=== PATIENT | male | born 1935 | race Caucasian/White ===

== ENCOUNTER 2024-08-18 20:29 | Inpatient (IN) | payer MEDICARE, MEDICAID, SELFPAY ==
[2024-08-18] VITALS (8 sets, daily range): BP systolic 135–177; BP diastolic 75–151; PULSE 96–117; RESP 18–26; TEMP 37; O2SAT 91–93; BMI 39.5
--- NOTE | 2024-08-18 20:48 | XRR_ITS ---
PROCEDURE INFORMATION: Exam: XR Chest Exam date and time: 08/18/2024 8:56 PM Age: 88 years old Clinical indication: Shortness of breath; Patient HX: Respiratory distress; Chest congestion; Cough TECHNIQUE: Imaging protocol: Radiologic exam of the chest. Views: 1 view. COMPARISON: No relevant prior studies available. FINDINGS: Lungs: Relatively low lung volumes with mild patchy basilar opacities likely due to atelectatic change, versus pneumonia in the appropriate clinical setting. Pleural spaces: Unremarkable. No pleural effusion. No pneumothorax. Heart/Mediastinum: Borderline cardiac silhouette size. Bones/joints: Unremarkable. Organs: Branching density in the right upper quadrant could represent material in the bowel versus less likely staghorn renal calculus. Other findings: Txba-ud-ywmgyyxw right hemidiaphragmatic elevation. XR/XR chest 1V portable [id number] IMPRESSION: Mild patchy bibasilar retrocardiac opacities due to atelectasis or pneumonia. Other findings detailed above.
[2024-08-18 20:53] LABS: ABG PCO2 52.4 mmHg (35-45); ABG PH Result 7.27 (7.35-7.45); Arterial Blood Gas Hematocrit 31.1 % (42-52); Blood Gas Allen Test Pos; Blood Gas Operator Identificat MONRO; Blood Gas Sample Site Radial, left; Blood Gas Sample Type Arterial; Carboxyhemoglobin 0.9 %THgb (0.4-20.1); HCO3 ABG 24.1 mmol/L (22-26); HGB O2 Sat 94.7 % (95-100); Methemoglobin 0.2 % (0.4-1.5); Oxygen Device NRB; Total Hemoglobin 10.2 g/dL (14-18)
[2024-08-18] MEDS: ipratropium-albuterol 3 mL Neb INHALATION (21:01)
[2024-08-18 21:13] LABS: Basophils # 0.1 10^3/uL (0.0-0.1); Basophils % 0.4 %; Eosinophils % 0.1 %; Hematocrit 35.4 % (37-53); Lymphocytes # 0.7 10^3/uL (0.8-4.8); Lymphocytes % 4.8 %; Mean Corpuscular HGB Conc 28.5 g/dL (30-55); Mean Corpuscular Hemoglobin 24.9 pg (27-33); Mean Corpuscular Volume 87.4 fl (82-101); Mean Platelet Volume 9.4 fL (7.4-10.4); Monocytes # 0.7 10^3/uL (0.2-0.9); Monocytes % 5.1 %; Neutrophils # 12.68 10^3/uL (1.8-7.7); Neutrophils % 89.2 %; Nucleated Red Blood Cells % 0 %; Platelet Count 246 10^3/cmm (157-399); Red Blood Count 4.05 10^6/uL (3.85-5.65); Red Cell Distribution Width 15.9 % (12.1-15.1); White Blood Count 14.23 10^3/uL (3.29-11.43)
[2024-08-18 21:30] LABS: Lactic Sepsis W/Reflex 1.1 mmol/L (0.5-2.2)
[2024-08-18 21:40] LABS: Blood Urea Nitrogen 46 mg/dL (8-23); Calcium 8.6 mg/dL (8.5-10.5); Carbon Dioxide 22 mmol/L (22-29); Chloride 104 mmol/L (98-107); Creatinine Clr Calc Pharmacy 34.7137; Glucose 190 mg/dL (65-115); NT Pro B Type Natriuretic Pept 1289 pg/mL (0-450); Osmolality Calculated 303 mOsm/kg (285-295); Sodium 138 mmol/L (136-145)
--- NOTE | 2024-08-18 22:46 | W.ED.SOB ---
HPI - SOB/Dyspnea General: Chief Complaint: Shortness of Breath/Dyspnea Stated Complaint: Resp Distress Time Seen by Provider: 08/18/24 20:40 History of Present Illness: HPI Narrative: This patient is an 88-year-old halfway resident who presents to the emergency department with shortness of breath. Patient was hypoxic at the halfway evidently his O2 sats dropped into the 80s. They did place him on oxygen. He has been coughing up brown phlegm. Unable to obtain a history from the patient. According to halfway records he has a history of a brain disorder. He also has a history of type 2 diabetes insulin-dependent, congestive heart failure and hypertension. Review of Systems General: Reports: ROS unobtainable due to medical condition Physical Exam Const: OTHER: Ill appearing HENMT: COMMON NORMALS: normocephalic, atraumatic, Normal nasal mucous membranes and turbinates present, moist oral mucous membranes and oropharynx normal HEAD & SCALP: normal to inspection, normocephalic and atraumatic FACE & SINUS: normal facial exam NOSE: Normal nasal mucous membranes and turbinates present Eye: COMMON NORMALS: Equal, round and reactive pupils present, EOMs intact bilaterally and conjunctivae normal GENERAL EYE: appearance normal, both eyes and all related structures CONJUNCTIVA: Yes conjunctivae normal PUPIL: Yes Equal, round and reactive pupils present Neck/C-Spine: COMMON NORMALS: supple and no JVD Chest: COMMONS NORMALS: normal inspection of the chest Resp: AUSCULTATION: rhonchi Cardio: COMMON NORMALS: no JVD, regular rate, regular rhythm, No gallops present (Cardio), No murmurs present (Cardio) and No rub (Cardio) RATE: regular rate RHYTHM: regular rhythm GI: COMMON NORMALS: Normal to inspection, nondistended, normoactive bowel sounds present, Soft to palpation and non-tender AUSCULTATION: Yes normoactive bowel sounds PALPATION: Yes Soft to palpation : COMMON NORMALS: Yes no CVA tenderness BLADDER/KIDNEY EXAM: Yes no CVA tenderness Back/Pelvis: COMMON NORMALS: no CVA tenderness and thoracic and lumbar spine normal to inspection Extremity: COMMON NORMALS: normal to inspection Neuro: COMMON NORMALS: CN's II-XII intact bilaterally Skin: COMMON NORMALS: no rashes or lesions noted, turgor normal and no jaundice GENERAL SKIN EXAM: no rashes or lesions noted and turgor normal Course Vital Signs: Vital signs: Vital Signs Temperature 98.6 F 08/18/24 20:39 Pulse Rate 113 H 08/18/24 21:08 Respiratory Rate 24 H 08/18/24 21:02 Blood Pressure 143/81 08/18/24 20:39 Pulse Oximetry 92 08/18/24 21:02 Oxygen Delivery Me thod Nasal Cannula 08/18/24 21:02 Oxygen Flow Rate 6 08/18/24 21:02 MDM - SOB/Dyspnea Medical Decision Making Arterial blood gases on 10 L on pH of 7.27, pCO2 52 and a pO2 of 88. Respiratory therapist put him on 6 L per nasal cannula is satting in the low 80s at this time. CBC reveals white blood cell count of 14.2. Hemoglobin 10.1. BMP revealed BUN 46 creatinine 1.8. Blood sugar 190. Lactic acid 1.1. BNP 1289. Chest x-ray was difficult to interpret due to poor inspiratory effort. Possible congestive heart failure. Possible perihilar infiltrates. COVID and influenza testing are pending. I did order Rocephin and Zithromax for pneumonia and 40 mg of Lasix for possible congestive heart failure. Patient will need to be admitted. I discussed the case with Dr. Hampton, hospitalist. He did accept the patient. He would like the patient in the cardiac stepdown unit. Patient is stable. He will be transferred to the floor soon as the bed is available. Lab Data 08/18/24 21:10 08/18/24 21:10 Labs/Radiology: Laboratory Results WBC 14.23 10^3/uL (3.29-11.43) H 08/18/24 21:10 RBC 4.05 10^6/uL (3.85-5.65) 08/18/24 21:10 Hgb 10.10 g/dL (11.27-16.99) L 08/18/24 21:10 Hct 35.4 % (37-53) L 08/18/24 21:10 MCV 87.4 fl (82-101) 08/18/24 21:10 MCH 24.9 pg (27-33) L 08/18/24 21:10 MCHC 28.5 g/dL (30-55) L 08/18/24 21:10 RDW 15.9 % (12.1-15.1) H 08/18/24 21:10 Plt Count 246 10^3/cmm (157-399) 08/18/24 21:10 MPV 9.4 fL (7.4-10.4) 08/18/24 21:10 Neut % (Auto) 89.2 % 08/18/24 21:10 Lymph % (Auto) 4.8 % 08/18/24 21:10 [place] % (Auto) 5.1 % 08/18/24 21:10 Eos % (Auto) 0.1 % 08/18/24 21:10 Baso % (Auto) 0.4 % 08/18/24 21:10 Neut # (Auto) 12.68 10^3/uL (1.8-7.7) H 08/18/24 21:10 Lymph # (Auto) 0.7 10^3/uL (0.8-4.8) L 08/18/24 21:10 [place] # (Auto) 0.7 10^3/uL (0.2-0.9) 08/18/24 21:10 Eos # (Auto) 0.0 10^3/uL (0.0-0.8) 08/18/24 21:10 Baso # (Auto) 0.1 10^3/uL (0.0-0.1) 08/18/24 21:10 Nucleated RBC % (auto) 0 % 08/18/24 21:10 Nucleated RBCs # 0.0 /100WBC 08/18/24 21:10 Specimen Type Arterial 08/18/24 20:40 Sample Site Radial, left 08/18/24 20:40 ABG pH 7.27 (7.35-7.45) L 08/18/24 20:40 ABG pCO2 52.4 mmHg (35-45) H 08/18/24 20:40 ABG pO2 88.0 mmHg (80.0-100.0) 08/18/24 20:40 ABG HCO3 24.1 mmol/L (22-26) 08/18/24 20:40 ABG Base Excess -3.0 mmol/L (-2.0-2.0) L 08/18/24 20:40 Isaias Test Pos 08/18/24 20:40 Hematocrit 31.1 % (42-52) L 08/18/24 20:40 Hgb O2 Saturation 94.7 % (95-100) L 08/18/24 20:40 Carboxyhemoglobin 0.9 %THgb (0.4-20.1) 08/18/24 20:40 Methemoglobin 0.2 % (0.4-1.5) L 08/18/24 20:40 Total Hemoglobin 10.2 g/dL (14-18) L 08/18/24 20:40 O2 Delivery Device Nrb 08/18/24 20:40 O2 Liters/Min 10.0 % 08/18/24 20:40 Hoop Punch Operator Helper ID Monro 08/18/24 20:40 Sodium 138 mmol/L (136-145) 08/18/24 21:10 Potassium 5.0 mmol/L (3.5-5.1) 08/18/24 21:10 Chloride 104 mmol/L (98-107) 08/18/24 21:10 Carbon Dioxide 22 mmol/L (22-29) 08/18/24 21:10 Anion Gap 17.0 (5-19) 08/18/24 21:10 BUN 46 mg/dL (8-23) H 08/18/24 21:10 Creatinine 1.8 mg/dL (0.7-1.2) H 08/18/24 21:10 GFR Calculation Not Reportable 08/18/24 21:10 Glucose 190 mg/dL (65-115) H 08/18/24 21:10 Calculated Osmolality 303 mOsm/kg (285-295) H 08/18/24 21:10 Lactic Acid 1.1 mmol/L (0.5-2.2) 08/18/24 21:10 Calcium 8.6 mg/dL (8.5-10.5) 08/18/24 21:10 NT-Pro-B Natriuret Pep 1289 pg/mL (0-450) H 08/18/24 21:10 XR interpretation done by ED provider, pending radiology final review Discharge Plan Discharge Condition: Stable Referrals: Duke Bradley [Primary Care Provider] - Coding Level of Care Code ED Board Saw Runner for Justing Kyle
[2024-08-18] MEDS: cefTRIAXone 2,000 mg SDV 2000 MG IVP (22:50)
[2024-08-18] MEDS: FUROsemide 10 mg/mL SDV 4mL 40 MG IVP (23:08)
[2024-08-18] MEDS: azithromycin 500 MG in sodium chloride 0.9% 250 ML 250 MG IV (23:08)
[2024-08-19] VITALS (63 sets, daily range): BP systolic 64–142; BP diastolic 30–74; PULSE 67–105; RESP 13–32; TEMP 37.1–38.1; O2SAT 84–98; BMI 29.0; BMI 29.2
--- NOTE | 2024-08-19 00:20 | P.HP_ITS ---
Providers/Chief Complaint 2 Admitting Physician: Justus Hampton Primary Care Provider: Duke Bradley Chief Complaint: Resp Distress History of Present Illness 88-year-old gentleman senior living resident normally confused at baseline, oriented x 2 was sent to ER for evaluation due to worsening shortness of breath, low oxygen saturation in the 80s, productive cough, wheezing in bilateral lungs. She initially had to be placed on nonrebreather to maintain oxygen saturation in the 90s, but was fighting with the mask, with some improvement in oxygen initially was switched over to nasal cannula. He was found to be tachycardic 103 with tachypnea 24, increased work of breathing, leukocytosis 14.23, ABG 7.27/52.4/88 on 10 L. Chest x-ray with mild patchy bibasilar retrocardiac opacities due to atelectasis or pneumonia. NT proBNP 1289. BUN 46, creatinine 1.8, unknown baseline. During my evaluation he is lethargic, with gurgling sounds coming from airway, wakes up very briefly to shoulder squeeze, loud voice, confused, not following directions well. On nasal cannula 6 L saturation down to 81%. Switched over to nonrebreather, oral suctioning, but he fights during suctioning, will not allow for deeper suctioning. After NT suctioning with RT sounds better. Continues on nonrebreather for now, sats increased up to 95%. Review of Systems 2 General: Reports: ROS unobtainable due to mental status PFSH Acute 2 PFSH: Medical History HLD (hyperlipidemia) Disorder of brain GERD (gastroesophageal reflux disease) Anxiety Diabetes HTN (hypertension) CHF (congestive heart failure) Vitals/I&O/Wt Last Vital Signs Temp 98.6 F 08/18/24 20:39 Pulse 103 H 08/19/24 00:00 Resp 24 H 08/19/24 00:00 BP 126/61 08/19/24 00:00 Pulse Ox 91 08/19/24 00:00 O2 Del Method Nasal Cannula 08/18/24 21:02 O2 Flow Rate 6 08/18/24 21:02 Weight last 48 hrs Weight 117.934 kg Physical Exam 2 Const: COMMON NORMALS: negative for patient oriented x3 and negative for alert GENERAL APPEARANCE: not cooperative NUTRITIONAL APPEARANCE: obese O RIENTATION/CONSCIOUSNESS: Yes lethargic HENMT: COMMON NORMALS: oropharynx normal Neck/C-Spine: COMMON NORMALS: no JVD Resp: COMMON NORMALS: normal respiratory effort and clear to auscultation bilaterally AUSCULTATION: rhonchi and other (Gurgling in upper airway.) Cardio: COMMON NORMALS: no JVD, regular rhythm, S1 normal heart sound present, S2 normal heart sound present and No murmurs present (Cardio) RHYTHM: regular rhythm HEART SOUNDS: S1 normal heart sound present and S2 normal heart sound present GI: COMMON NORMALS: Normal to inspection, nondistended, normoactive bowel sounds present, Soft to palpation and non-tender PALPATION: Yes Soft to palpation Extremity: COMMON NORMALS: no joint enlargement and no pedal edema GENERAL: Yes edema (2+) Neuro: COMMON NORMALS: patient oriented x3 and moves all extremities S ENSORIUM/ORIENTATION: Yes alert Skin: COMMON NORMALS: no rashes or lesions noted GENERAL SKIN EXAM: no rashes or lesions noted Sepsis: Is patient septic: Yes Focused sepsis exam: He is lethargic. Maintaining blood pressure. Warm and perfused extremities. No cyanosis. Good capillary refill. Date exam was performed: 08/18/24 Time exam was performed: 23:30 Data 08/18/24 21:10 08/18/24 21:10 Micro: Microbiology 08/18/24 21:47 Blood Culture - Preliminary Blood SPECIMEN COLLECTED 08/18/24 21:31 Blood Culture - Preliminary Blood SPECIMEN COLLECTED A&P Assessment and plan (1) Acute respiratory failure with hypoxia and hypercapnia: Brought to ED for assessment due to shortness of breath, O2 saturations in the 80s, productive cough, wheezing, on presentation here in respiratory failure with hypoxia and hypercapnia, sepsis complicated by acute encephalopathy, with tachypnea 24 breaths/min, tachycardia 102, hypoxia requiring 8 L nonrebreather, with leukocytosis 14.23, with acute kidney injury. With pneumonia with mild patchy bibasilar retrocardiac opacities and CHF exacerbation with lower extremity edema, NT proBNP elevated 1289. History of unknown type CHF. Reviewed vitals, CBC, ABG, BMP, NT proBNP, lactic acid, requested and reviewed influenza, coronavirus, RSV PCR. Reviewed chest x-ray. Reviewed ED provider note. Discussed with ED provider, nursing, RT. Given additional deterioration despite initial treatment saturation down to 81, with gurgling sounds from the airway, not clearing secretions very well, required NT suctioning, switched him back to nonrebreather oxygen support, initially 10 L with oxygen saturation rising gradually to low to mid 90s. Discussed again with current ER physician, will admit to intensive care unit at first. Reviewed goals of care, he is DNR, no intubation. Discussed with RT, start heated high flow. Requesting O2 targets 88-92%, avoid hyperoxia due to concomitant hypercapnia. He had not been cooperating with nonrebreather mask, pulling it off, getting restless, additionally with airway secretions, BiPAP at the moment would cause too much undue risk. Monitor oxygenation and respirations in ICU. Treat pneumonia, treat CHF. Started on ceftriaxone, azithromycin, continue. Monitor for risk of QT prolongation. Obtain baseline EKG. Received a dose of Lasix, continue Lasix 40 mg IV twice daily, monitor ALYSSA, monitor for risk of electrolyte deficiency, worsening kidney function. Obtain sputum culture, MRSA PCR, urine bacterial antigens, urine Legionella and strep. N.p.o. until he is more alert. (2) Acute encephalopathy: Acute metabolic encephalopathy secondary to respiratory failure, pneumonia, CHF exacerbation with hypoxia, hypercapnia, as well as JORDANA, possible toxic encephalopathy secondary to medication. Treat respiratory failure as above. Avoid hyperoxia, target O2 saturation 80-92%. Additionally will hold gabapentin for now in the setting of JORDANA. Reassess kidney function. (3) Pneumonia: As above (4) Decompensated heart failure: Acutely decompensated CHF, type unknown. Obtain echocardiogram. Monitor on telemetry with risk of arrhythmia. Treat respiratory failure as above. Complicated by JORDANA, creatinine 1.8. For now started on Lasix 40 mg twice daily IV, monitor urine output, weight, chemistry due to risk of electrolyte deficiency, worsening renal function. Reassess volume status. Obtain troponin and EKG series. (5) JORDANA (acute kidney injury): Reviewed BUN, creatinine, bicarb, potassium. BUN 46, creatinine 1.8. Noted JORDANA, unknown cause, possibly congestive pathology with CHF. Additional treatment as above. Reassess renal function. Potassium noted with mild hyperkalemia 5. Recheck chemistry. Monitor intake and output. Obtain urine creatinine, urine urea, kidney and bladder ultrasound. Obtain UA. Plan Sepsis with tachycardia 103, leukocytosis to 14.23, with acute respiratory failure with hypoxia requiring nonrebreather oxygen support, with hypercapnia, with tachypnea 24 breaths/min, also with associated acute encephalopathy, with JORDANA. Additional assessment treatment of underlying causes, pneumonia as above. Obtain UA. Blood cultures collected, follow-up. DM2: Lantus, reduced dose to 15 units due to nothing by mouth with encephalopathy, monitor glucose, sliding scale insulin. HLD GERD: PPI Dementia brought to the hospital due to shortness of breath, low O2 saturation in 80s, Attestations 2 Medical Necessity Statement*: Admission of over 2 midnights anticipated for assessment management of respiratory failure with hypoxia and hypercapnia, pneumonia, decompensated CHF, acute encephalopathy, sepsis. Coding Level of Care Code Critical Care >/= 30 minutes Critical care time (in minutes): 40 The high probability of a clinically significant, sudden or life threatening deterioration, as referenced in this documentation, required my full and direct attention, intervention and personal management. The critical care time shown is in addition to time spent performing any reported separately billable procedures and includes the following: [x] Data and vital sign review and interpretation [x ] Patient assessment, examination and intervention [x] Medication orders and management [x] Patient/Family updates as able [x] Care Coordination and Documentation. Diagnoses Acute respiratory failure with hypoxia and hypercapnia J96.01; J96.02 Acute encephalopathy G93.40 Pneumonia J18.9 Decompensated heart failure I50.9 JORDANA (acute kidney injury) N17.9
[2024-08-19 00:31] LABS: Covid PCR NEGATIVE (Negative); Influenza A NEGATIVE (Negative); Influenza B NEGATIVE (Negative); Respiratory Syncytial Virus Ce NEGATIVE (Negative)
--- NOTE | 2024-08-19 01:20 | USCV_ITS ---
Benito Roman Age: 88 Gender: M : 1935 Exam Date: 08/19/2024 09:46 Ordering Phys: Justus Hampton MD Technologist: Gerald Machado Exam Location: [facility] [place] Indication: CHF BP: 136 / 71 HR: 89 Rhythm: Sinus Technical Quality: Adequate MEASUREMENTS (Male / Female) Normal Values 2D ECHO LV Diastolic Diameter PLAX 4.4 cm 4.2 - 5.9 / 3.9 - 5.3 cm IVS Diastolic Thickness 1.1 cm 0.6 - 1.0 / 0.6 - 0.9 cm IVS Systolic Thickness 1.5 cm LVPW Diastolic Thickness 1.4 cm 0.6 - 1.0 / 0.6 - 0.9 cm LVPW Systolic Thickness 1.3 cm LVOT Diameter 2.1 cm LV Ejection Fraction 2D Teich 74.9 % LV Ejection Fraction MOD 4C 45.8 % LV Ejection Fraction MOD 2C 40.1 % LV Ejection Fraction 2C AL 40.4 % LA Diameter 3.6 cm RA Systolic Volume 4C AL 26.3 ml RA Systolic Volume 4C MOD 27.2 ml LA Sys Volume AL 54.8 cm cubed LA Sys Volume Index AL 26.5 cm cubed/m squared Aorta at Sinotubular Diameter 2.6 cm M-MODE LA Ao Ratio MM 1.4 AV Cusp Separation MM 1.8 cm DOPPLER AV Peak Velocity 166.3 cm/s LVOT Peak Velocity 102.0 cm/s AV Area Cont Eq vti 2.0 cm squared AV Area Cont Eq pk 2.0 cm squared MV Peak Velocity 154.0 cm/s MV Area PHT 7.4 cm squared Mitral E to A Ratio 0.9 TV Peak Velocity 224.5 cm/s TR Peak Velocity 322.0 cm/s TR Peak Gradient 41.5 mmHg TR Mean Velocity 282.0 cm/s TR Mean Gradient 32.2 mmHg TR Velocity Time Integral 79.0 cm PV Peak Velocity 109.0 cm/s RV Ejection Time 0.3 s FINDINGS Left Ventricle Technically limited quality echocardiogram because of poor ultrasonic windows. LV systolic function is mildly reduced with EF of 40 to 45%. Mild global hypokinesis seen. Grade 1 diastolic dysfunction. Right Ventricle Normal in size and function Right Atrium Normal in size Left Atrium Normal in size Mitral Valve Structurally normal mitral valve. Mild mitral regurgitation. Aortic Valve Aortic valve is thickened. No significant stenosis seen Tricuspid Valve Insufficient TR jet to calculate RVSP Pulmonic Valve Not well visualized Pericardium Normal Aorta Normal in size IVC Not visualized CONCLUSIONS Technically limited quality echocardiogram because of poor ultrasonic windows. LV systolic function is mildly reduced with EF of 40 to 45%. Grade 1 diastolic dysfunction. Mild mitral regurgitation No comparison studies are available. Hakeem Burns MD (Electronically Signed) Final Date: 19 August 2024 11:34 S
--- NOTE | 2024-08-19 01:20 | USR_ITS ---
PROCEDURE INFORMATION: Exam: US Retroperitoneal, Complete, Kidneys and Bladder Exam date and time: 08/19/2024 10:29 AM Age: 88 years old Clinical indication: Condition or disease; Kidney or ureter condition; Other: Valentino TECHNIQUE: Imaging protocol: Real-time ultrasound of the retroperitoneum with image documentation. Complete exam focused on the bilateral kidneys and urinary bladder. COMPARISON: No relevant prior studies available. FINDINGS: Right kidney: Right renal cysts measuring up to 3.9 cm. Moderate right hydronephrosis and hydroureter versus pelvocaliceal dilation, poorly visualized. No distinct renal stones. Left kidney: Left renal cyst measuring up to 2.8 cm. Moderate left pelvicaliceal dilation versus hydronephrosis and hydroureter, poorly visualized. No distinct renal stones. Urinary bladder: Rosas catheter bulb is visualized within a decompressed urinary bladder. US/US renal BI* [id number] IMPRESSION: 1. Bilateral kidneys demonstrate [id number] pelvocaliceal dilation versus hydronephrosis with hydroureter, poorly visualized. Chronicity cannot be determined. 2. Rosas catheter bulb is visualized within a decompressed urinary bladder.
[2024-08-19 01:45] LABS: Troponin(5th) Baseline 54 ng/L (0-15)
--- NOTE | 2024-08-19 01:46 | ECG_ITS ---
[facility] Test Date: 2024-08-19 Pat Name: Benito Roman Department: Room: ICU01 Gender: Male Bench Worker Binding: : 1935 Requested By: Justus Hampton Order Number: [id number] [place] MD: Hakeem Burns M.D. Measurements Intervals [place] Rate: 89 P: 25 MO: 205 QRS: -40 QRSD: 126 T: 56 QT: 347 QTc: 423 Interpretive Statements SINUS RHYTHM LEFT AXIS DEVIATION [QRS AXIS < -30] POSSIBLE ANTERIOR MYOCARDIAL INFARCTION , OF INDETERMINATE AGE [30 ms Q WAVE IN V3/V4, OR R < 0.2 mV IN V4] No previous ECG available for comparison Electronically Signed On 08-20-2024 14:16:23 CDT by Hakeem Burns M.D. [email or web address]
[2024-08-19 02:07] LABS: Glucose Point of Care 210 mg/dL (70-110)
[2024-08-19] MEDS: pantoprazole 40 mg SDV IVP (02:45)
[2024-08-19] MEDS: insulin lispro 100 unit/1 mL SUBCUT (02:45)
[2024-08-19 03:04] LABS: Urine Creatinine 27 mg/dL (39-259)
[2024-08-19 03:22] LABS: Bilirubin Urine Negative (Negative); Blood Urine Negative (Negative); Glucose Urine UA Trace (Normal); Ketones Urine Negative (Negative); Leukocyte Esterase Urine 2+ (Negative); Nitrate Urine Negative (Negative); Protein Urine 1+ (Negative); Specific Gravity, Urine 1.011 (1.005-1.030); Urine Appearance Clear (CLEAR); Urine Color Yellow (Yellow); Urobilinogen Urine 0.2 mg/dL (Negative); pH Urine 5.5 (5-7)
[2024-08-19 03:27] LABS: Add Urine Microscopic? YES; Bacteria Urine None Seen /hpf; Hyaline Casts Urine 1.21 /lpf; RBC Urine 0-2 /hpf (0-2); Squamous Epithelial Cell Urine 0-5 /hpf (0-5); WBC Urine 21-50 /hpf (0-5)
[2024-08-19 03:32] LABS: Urea Nitrogen,Urine Random 321 mg/dL
[2024-08-19 03:33] LABS: Add Urine Culture? Yes
[2024-08-19 04:03] LABS: MRSA PCR OZH (swab) NOT DETECTED (Negative)
--- NOTE | 2024-08-19 07:09 | ECG_ITS ---
[facility] Date: 2024-08-19 Pat Name: Benito Roman Department: Room: ICU01 Gender: Male Set Up / Operator: : 1935 Requested By: Justus Hampton Order Number: [id number] [place] MD: Hakeem Burns M.D. Measurements Intervals [place] Rate: 102 P: 64 WA: 225 QRS: -47 QRSD: 117 T: 91 QT: 316 QTc: 413 Interpretive Statements SINUS TACHYCARDIA WITH FIRST DEGREE AV BLOCK LEFT AXIS DEVIATION [QRS AXIS < -30] POSSIBLE ANTERIOR MYOCARDIAL INFARCTION , OF INDETERMINATE AGE [30 ms Q WAVE IN V3/V4, OR R < 0.2 mV IN V4] Compared to ECG 08/19/2024 01:46:50 First degree AV block now present Sinus rhythm no longer present Myocardial infarct finding still present Electronically Signed On 08-20-2024 14:16:20 CDT by Hakeem Burns M.D. [email or web address]
[2024-08-19 08:19] LABS: Troponin 5 6HR 57.72 ng/L (0-15); Troponin 5 6HR Delta 3.72 ng/L (0-12)
[2024-08-19] MEDS: enoxaparin 40 mg/0.4 mL Syringe SUBCUT (08:29)
[2024-08-19] MEDS: cefTRIAXone 2,000 mg SDV 2000 MG IVP (08:29)
[2024-08-19] MEDS: insulin glargine 100 units/1 mL 15 UNIT SUBCUT (08:38)
[2024-08-19 08:50] LABS: Glucose Point of Care 103 mg/dL (70-110)
--- NOTE | 2024-08-19 13:28 | PC.NURSE ---
NUrse Called [facility], Baseline mental status: Oriented to self, occasionally time. Usually not oriented to time or situation. Ambulation: Often in a wheel chair. Able to walk short distances with a walker and requires someone to follow behind with a wheel chair. Diet: Regular diet- low sodium. However staff thinks he may have aspirated on this diet recently.
[2024-08-19 13:31] LABS: ABG PCO2 51.5 mmHg (35-45); ABG PH Result 7.32 (7.35-7.45); Arterial Blood Gas Hematocrit 28.2 % (42-52); Base Excess ABG 0.3 mmol/L (-2.0-2.0); Blood Gas Allen Test Pos; Blood Gas Operator Identificat CAK; Blood Gas Sample Site Radial, left; Blood Gas Sample Type Arterial; Carboxyhemoglobin 0.9 %THgb (0.4-20.1); HCO3 ABG 26.7 mmol/L (22-26); HGB O2 Sat 92.8 % (95-100); Ionized Calcium Level - ABG 1.2 mmol/L (1.1-1.4); Methemoglobin 1.6 % (0.4-1.5); Oxygen Device HAG; Oxygen Saturation ABG 95.2; PO2 ABG 76.4 mmHg (80.0-100.0); PO2 FiO2 Ratio Arterial Blood 191; Potassium Level - ABG 4.5 mmol/L (3.5-5.0); Total Hemoglobin 9.2 g/dL (14-18)
[2024-08-19 13:41] LABS: Glucose Point of Care 79 mg/dL (70-110)
--- NOTE | 2024-08-19 13:44 | W.PM.EVENTAC ---
Event Note Event Note: This morning patient was on heated high flow He was confused Significant crackles noted on lung auscultation He was on heated high flow 40 L 40% Request another ABG to see if we could use BiPAP Hypercapnia would not be better with use of heated high flow at this point Fever noted He seems to have combination of CHF exacerbation, JORDANA and aspiration pneumonia DNR/DNI
[2024-08-19] MEDS: linezolid premix 600 MG/300 ML PREMIX 300 MG IV (15:46)
[2024-08-19] MEDS: piperacillin-tazobactam 3.375 GM in sodium chloride 0.9% (plus) 50 ML IV ×2 (15:46→22:14)
[2024-08-19 15:54] LABS: Glucose Point of Care 64 mg/dL (70-110)
[2024-08-19] MEDS: dextrose 10% 125 ML 750 ML IV (15:54)
[2024-08-19] MEDS: glucagon 1 mg/mL KIT 1 mL IM (16:06)
[2024-08-19] MEDS: acetylcysteine 200 mg/mL MDV 10 mL INHALATION ×2 (16:09→20:51)
[2024-08-19] MEDS: ipratropium-albuterol 3 mL Neb INHALATION ×2 (16:09→20:51)
[2024-08-19 16:20] LABS: Glucose Point of Care 137 mg/dL (70-110)
--- NOTE | 2024-08-19 16:22 | PC.NURSE ---
BLood glucose was 64. Patient is lethargic and confused, but he is confused at baseline and he was lethargic this morning when blood sugar was higher. Nurse gave 125mL of d10 per hypoglycemic protocol. Nurse alerted Dr Baker, received order to also give glucagon and to discontinue lantus.
[2024-08-19 18:10] LABS: MRSA PCR OZH (swab) MRSA Detected (Negative)
--- NOTE | 2024-08-19 18:29 | PC.NURSE ---
SHift SUmmary: Uneventful shift. Patient rested in bed throughout the day. Placed on Bipap, received IV antibiotics as ordered. Lantus discontinued due to hypoglycemia.
[2024-08-19 19:36] LABS: Glucose Point of Care 120 mg/dL (70-110)
[2024-08-19] MEDS: albumin 25 G/100 ML BAG 60 G IV (20:43)
[2024-08-20] VITALS (49 sets, daily range): BP systolic 102–150; BP diastolic 49–87; PULSE 67–98; RESP 14–29; TEMP 36.8–37.2; O2SAT 82–95
[2024-08-20] MEDS: ipratropium-albuterol 3 mL Neb INHALATION ×5 (01:04→15:20)
[2024-08-20] MEDS: acetylcysteine 200 mg/mL MDV 10 mL INHALATION ×3 (01:05→07:48)
[2024-08-20] MEDS: dextrose 10% 125 ML 750 ML IV (04:31)
[2024-08-20] MEDS: linezolid premix 600 MG/300 ML PREMIX 300 MG IV ×2 (04:34→16:05)
[2024-08-20] MEDS: pantoprazole 40 mg SDV IVP (04:34)
[2024-08-20 05:28] LABS: Basophils % 0.6 %; Eosinophils # 0.1 10^3/uL (0.0-0.8); Lymphocytes # 0.8 10^3/uL (0.8-4.8); Lymphocytes % 12.1 %; Mean Corpuscular HGB Conc 28.9 g/dL (30-55); Mean Corpuscular Hemoglobin 25.2 pg (27-33); Mean Platelet Volume 9.6 fL (7.4-10.4); Monocytes # 0.5 10^3/uL (0.2-0.9); Monocytes % 7.9 %; Neutrophils # 5.35 10^3/uL (1.8-7.7); Nucleated Red Blood Cells % 0 %; Platelet Count 179 10^3/cmm (157-399); Red Blood Count 3.22 10^6/uL (3.85-5.65); Red Cell Distribution Width 16.1 % (12.1-15.1); White Blood Count 6.86 10^3/uL (3.29-11.43)
[2024-08-20 05:40] LABS: Glucose Point of Care 134 mg/dL (70-110)
[2024-08-20 06:02] LABS: Alanine Aminotransferase 10 U/L (0-41); Albumin Level 3.5 g/dL (3.5-5.2); Alkaline Phosphatase 104 U/L (40-130); Anion Gap 16.3 (5-19); Aspartate Amino Transferase 13 U/L (0-40); Blood Urea Nitrogen 54 mg/dL (8-23); Calcium 8.4 mg/dL (8.5-10.5); Carbon Dioxide 25 mmol/L (22-29); Chloride 106 mmol/L (98-107); Globulin 3.1 g/dL (1.3-4.6); Glucose 116 mg/dL (65-115); Osmolality Calculated 312 mOsm/kg (285-295); Potassium 4.3 mmol/L (3.5-5.1); Sodium 143 mmol/L (136-145); Thyroid Stimulating Hormone 2.68 uIU/mL (0.27-4.20); Total Bilirubin 0.2 mg/dL (0.15-1.2); Total Protein 6.6 g/dL (6.6-8.7)
[2024-08-20 06:03] LABS: Creatinine Clr Calc Pharmacy 22.3951
[2024-08-20] MEDS: piperacillin-tazobactam 3.375 GM in sodium chloride 0.9% (plus) 50 ML IV ×3 (06:37→21:28)
[2024-08-20 08:09] LABS: Glucose Point of Care 68 mg/dL (70-110)
[2024-08-20 11:27] LABS: Glucose Point of Care 123 mg/dL (70-110)
--- NOTE | 2024-08-20 11:30 | P.PN_ITS ---
Subjective 2 Subjective: Patient this morning is much more awake and alert able to communicate However attention span is very small He wanted to eat I will put him on p.o. diet speech therapy recommendations are still pending He is afebrile, no leukocytosis Currently on BiPAP Overnight events noted Yesterday he was given glucagon as well for hypoglycemia Spoke with his son today He stating that he was on a diabetic diet but never had an issue with swallowing He is also endorsing that his father would get memory impairment he was showing his Vitals/I&O/Wt Last Vital Signs Temp 98.6 F 08/20/24 09:00 Pulse 73 08/20/24 10:21 Resp 19 H 08/20/24 10:00 BP 120/50 08/20/24 10:00 Pulse Ox 93 08/20/24 10:21 O2 Del Method BiPAP 08/20/24 07:40 O2 Flow Rate 40 08/19/24 13:30 FiO2 21 08/20/24 10:21 08/19/24 08/20/24 08/20/24 22:59 06:59 14:59 Intake Total 475 / 725 350 / 1075 Output Total 100 / 500 800 / 1300 Balance 375 / 225 -450 / -225 Weight last 48 hrs Weight 85.275 kg Weight 85.275 kg Weight 87.1 kg Weight 87.1 kg Weight 86.545 kg Weight 86.7 kg Weight 117.934 kg Physical Exam 2 Narrative: Patient this morning has lower extremity swelling 2+ Hemodynamically stable Currently on BiPAP Awake and alert Able to answer simple questions Able to follow commands Wet cough seems to be better Mild rhonchi Urinary Catheter Management: Rosas: Cath Placed During This Visit: yes Reason for Continuing Indwelling Catheter: Accurate Measurement of Urinary Output in Critically Ill Patients Urinary Catheter Date of Insertion: 08/19/24 Urinary Catheter Time of Insertion: 02:20 Data 08/20/24 04:44 08/20/24 04:44 Micro: Microbiology 08/19/24 02:20 Urine Culture - Preliminary Urine,Clean Catch Bacterial Antigens - Final 08/18/24 21:47 Blood Culture - Preliminary Blood NEGATIVE TO DATE 08/18/24 21:31 Blood Culture - Preliminary Blood NEGATIVE TO DATE 08/19/24 02:20 Gram Stain - Final Sputum - Expectorated Sputum A&P Assessment and plan (1) Decompensated heart failure: (2) JORDANA (acute kidney injury): (3) Acute encephalopathy: (4) Acute respiratory failure with hypoxia and hypercapnia: (5) Pneumonia: Plan MRSA pneumonia Rule out aspiration I will keep him. Diet for now Requested speech therapy Diastolic CHF: Continue diuresis JORDANA: Creatinine worsened to 2.4 Aggressive diuresis requested Type II diabetic will keep him on sliding scale, Pur?ed diet for now UTI: Continue antibiotics DNR/DNI Get him out of ICU to [facility] Will request overnight pulse ox to see if it will qualify for BiPAP at the longterm Attestations 2 Medical Necessity Statement*: Continue medical management Diagnoses Decompensated heart failure I50.9 JORDANA (acute kidney injury) N17.9 Acute encephalopathy G93.40 Acute respiratory failure with hypoxia and hypercapnia J96.01; J96.02 Pneumonia J18.9
--- NOTE | 2024-08-20 11:40 | CTR_ITS ---
PROCEDURE INFORMATION: Exam: CT Chest Without Contrast; Diagnostic Exam date and time: 08/20/2024 8:02 PM Age: 88 years old Clinical indication: Other: Hydronephrosis and pna TECHNIQUE: Imaging protocol: Diagnostic computed tomography of the chest without contrast. Radiation optimization: All CT scans at this facility use at least one of these dose optimization techniques: automated exposure control; mA and/or kV adjustment per patient size (includes targeted exams where dose is matched to clinical indication); or iterative reconstruction. COMPARISON: CR (CHEST, ) 08/18/2024 8:56 PM RADIATION DOSE METRICS: Total DLP (mGy-cm): 1095 FINDINGS: Thyroid: Homogeneous thyroid. Lungs: Tracheobronchomalacia. There is multifocal atelectasis in each lung. Patchy opacities are demonstrated at each lung base with peripheral bronchiectasis at the right lung base. There is multifocal endobronchial debris. Pleural spaces: No pneumothorax. No pleural effusion. Heart: Normal heart size. No significant pericardial fluid. Coronary arteries: Moderate to advanced coronary artery calcification. Lymph nodes: No enlarged lymph nodes. Vasculature: Calcified thoracic aorta without dilation. Bones/joints: No acute fracture or destructive lesion. Soft tissues: Unremarkable. PROCEDURE INFORMATION: Exam: CT Abdomen And Pelvis Without Contrast Exam date and time: 08/20/2024 8:02 PM Age: 88 years old Clinical indication: Other: Hydronephrosis and pna TECHNIQUE: Imaging protocol: Computed tomography of the abdomen and pelvis without contrast. Radiation optimization: All CT scans at this facility use at least one of these dose optimization techniques: automated exposure control; mA and/or kV adjustment per patient size (includes targeted exams where dose is matched to clinical indication); or iterative reconstruction. COMPARISON: US renal BI* [id number] 08/19/2024 10:29 AM RADIATION DOSE METRICS: Total DLP (mGy-cm): 1095 FINDINGS: Tubes, catheters and devices: Catheterized urinary bladder. Liver: Normal configuration. Homogeneous parenchyma. Gallbladder and biliary ducts: No regional inflammation. No calcified stones. No ductal dilation. Pancreas: Normal. No ductal dilation. Spleen: Normal. No splenomegaly. Adrenal glands: Normal configuration. Kidneys and ureters: There is bilateral renal atrophy. 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 AP dimension of the right renal pelvis measures 1.2 cm, previously 2.0 cm. Minimally dilated left ureter. AP dimension of the left renal pelvis measures 1.8 cm, previously 2.1 cm. No calculus seen in either kidney or in either ureter. Stomach and bowel: Unremarkable. No obstruction. No mural thickening. Appendix: Normal appendix is confirmed. Intraperitoneal space: No free air. No significant fluid collection. Vasculature: Tortuous aorta without dilation. Moderate arterial calcification. Lymph nodes: No enlarged lymph nodes. Urinary bladder: Urinary bladder is catheterized and decompressed. Reproductive: Physiologic appearance for age. Bones/joints: Diffuse fatty atrophy of skeletal muscle. Lumbar levoscoliosis with multilevel degenerative disc and facet disease. Adequate spinal canal and neural foramina. Mild bilateral sacroiliac osteoarthritis. Mild bilateral hip osteoarthritis. Soft tissues: Bilateral fat containing indirect inguinal hernias. No perineal/perianal abscess or inflammation. CT/[place] [id number] IMPRESSION: Considerable tracheobronchomalacia with endobronchial debris and multifocal atelectasis. It is difficult to exclude associated pneumonia. IMPRESSION: There is mild prominence of the intrarenal collecting systems bilaterally, improved when compared to ultrasound 1 day earlier. Kidneys are atrophic.
[2024-08-20 16:09] LABS: Glucose Point of Care 398 mg/dL (70-110)
[2024-08-20] MEDS: insulin lispro 100 unit/1 mL SUBCUT ×2 (16:11→19:37)
[2024-08-20] MEDS: bumetanide 0.25 mg/mL SDV 4 mL 1 MG IVP ×2 (16:12→21:28)
[2024-08-20 18:19] LABS: Glucose Point of Care 293 mg/dL (70-110)
[2024-08-20] MEDS: levETIRAcetam 500 mg Tablet PO (21:29)
[2024-08-21] VITALS (7 sets, daily range): BP systolic 120–148; BP diastolic 75–90; PULSE 70–77; RESP 18–20; TEMP 36.7–37.6; O2SAT 90–94
[2024-08-21] MEDS: pantoprazole 40 mg SDV IVP (01:15)
[2024-08-21] MEDS: linezolid premix 600 MG/300 ML PREMIX 300 MG IV ×2 (01:16→12:56)
[2024-08-21 05:32] LABS: Basophils % 0.6 %; Eosinophils # 0.2 10^3/uL (0.0-0.8); Eosinophils % 3.8 %; Lymphocytes % 15.8 %; Mean Corpuscular HGB Conc 29.3 g/dL (30-55); Mean Corpuscular Hemoglobin 24.8 pg (27-33); Mean Corpuscular Volume 84.5 fl (82-101); Mean Platelet Volume 9.4 fL (7.4-10.4); Monocytes # 0.5 10^3/uL (0.2-0.9); Monocytes % 8.1 %; Neutrophils # 4.47 10^3/uL (1.8-7.7); Neutrophils % 70.8 %; Nucleated Red Blood Cells % 0 %; Platelet Count 211 10^3/cmm (157-399); Red Blood Count 3.55 10^6/uL (3.85-5.65); Red Cell Distribution Width 15.8 % (12.1-15.1); White Blood Count 6.32 10^3/uL (3.29-11.43)
[2024-08-21] MEDS: piperacillin-tazobactam 3.375 GM in sodium chloride 0.9% (plus) 50 ML IV (05:42)
[2024-08-21 05:52] LABS: Anion Gap 16.2 (5-19); Blood Urea Nitrogen 44 mg/dL (8-23); Calcium 8.3 mg/dL (8.5-10.5); Carbon Dioxide 26 mmol/L (22-29); Chloride 103 mmol/L (98-107); Creatinine Clr Calc Pharmacy 25.3482; Glucose 147 mg/dL (65-115); Osmolality Calculated 306 mOsm/kg (285-295); Potassium 4.2 mmol/L (3.5-5.1); Sodium 141 mmol/L (136-145)
[2024-08-21 06:19] LABS: Glucose Point of Care 154 mg/dL (70-110)
[2024-08-21] MEDS: bumetanide 0.25 mg/mL SDV 4 mL 1 MG IVP (08:44)
[2024-08-21] MEDS: ipratropium-albuterol 3 mL Neb INHALATION (08:48)
[2024-08-21] MEDS: levETIRAcetam 500 mg Tablet PO ×2 (09:12→17:42)
[2024-08-21 11:06] LABS: Glucose Point of Care 207 mg/dL (70-110)
--- NOTE | 2024-08-21 11:21 | PM.DCS ---
Discharge Providers Date of Admission: 08/18/24 22:45 Date of Discharge: August 21, 2024 Attending Provider at Admission: Justus Hampton Attending Provider at Discharge: Carlene Baker MD Primary Care Provider: Duke Bradley Diagnoses at Discharge Discharge Diagnosis (1) Decompensated heart failure: Status: Acute (2) JORDANA (acute kidney injury): Status: Acute (3) Acute encephalopathy: Status: Acute (4) Acute respiratory failure with hypoxia and hypercapnia: Status: Acute (5) Pneumonia: Status: Acute Reason for Visit Reason for Visit: Resp Distress Hospital Course Hospital Course 88-year male came from a intermediate for altered mental status he was diagnosed with hypoxic hypercapnic respite failure required BiPAP which improved his mentation, he was put on broad-spectrum antibiotics, remained hemodynamically stable, he was also diagnosed with JORDANA related to cardiorenal syndrome, systolic CHF, echo showed mildly reduced EF, no active chest pain, troponin trending down, at the time of discharge I have arranged BiPAP for him, I have added Spiriva and Breo Ellipta along clindamycin 7-day regimen for his MRSA pneumonia. Nares PCR positive for MRSA. Speech therapy recommended level 4 dysphagia diet. At baseline patient has cognitive impairment, but able to communicate, he is diabetic and son was not happy that at the intermediate he was getting regular meals. Creatinine started improving at the time of discharge with use of diuretics, creatinine at discharge is 2.1. It peaked at 2.4. Spironolactone discontinued Physical Exam Narrative: Patient is awake and alert talking, currently on room air Hemodynamically stable GCS 15 Lower extremity swelling improving Rosas catheter will be removed before discharge Urinary Catheter Management: Rosas: Cath Placed During This Visit: yes Reason for Continuing Indwelling Catheter: Acute Urinary Retention or Obstruction Urinary Catheter Date of Insertion: 08/19/24 Urinary Catheter Time of Insertion: 02:20 Discharge Data Studies Completed and Pending Completed Studies During Hospitalization Category Date Time Status CT chest abdomen pelvis [[place] [id number] Cat Scan 08/20/24 11:40 Completed ] Routine XR chest 1V portable [id number] Stat Exams 08/18/24 20:48 Completed CV. echo complete* [id number] Routine Ultrasound 08/19/24 01:20 Completed US renal BI* [id number] Routine Ultrasound 08/19/24 01:20 Completed Pending at discharge Category Date Time Status Blood Culture Stat Lab 08/18/24 21:47 Results Complete Blood Count w/Auto AM LABS Lab 08/22/24 04:00 Ordered Radiology Impressions Chest X-Ray 08/18/24 20:48 IMPRESSION: Mild patchy bibasilar retrocardiac opacities due to atelectasis or pneumonia. Other findings detailed above. Renal Ultrasound 08/19/24 01:20 IMPRESSION: 1. Bilateral kidneys demonstrate [id number] pelvocaliceal dilation versus hydronephrosis with hydroureter, poorly visualized. Chronicity cannot be determined. 2. Rosas catheter bulb is visualized within a decompressed urinary bladder. Chest/Abdomen/Pelvis CT 08/20/24 11:40 IMPRESSION: Considerable tracheobronchomalacia with endobronchial debris and multifocal atelectasis. It is difficult to exclude associated pneumonia. IMPRESSION: There is mild prominence of the intrarenal collecting systems bilaterally, improved when compared to ultrasound 1 day earlier. Kidneys are atrophic. Laboratory Results WBC 6.32 10^3/uL (3.29-11.43) 08/21/24 05:20 RBC 3.55 10^6/uL (3.85-5.65) L 08/21/24 05:20 Hgb 8.80 g/dL (11.27-16.99) L 08/21/24 05:20 Hct 30.0 % (37-53) L 08/21/24 05:20 MCV 84.5 fl (82-101) 08/21/24 05:20 MCH 24.8 pg (27-33) L 08/21/24 05:20 MCHC 29.3 g/dL (30-55) L 08/21/24 05:20 RDW 15.8 % (12.1-15.1) H 08/21/24 05:20 Plt Count 211 10^3/cmm (157-399) 08/21/24 05:20 MPV 9.4 fL (7.4-10.4) 08/21/24 05:20 Neut % (Auto) 70.8 % 08/21/24 05:20 Lymph % (Auto) 15.8 % 08/21/24 05:20 [place] % (Auto) 8.1 % 08/21/24 05:20 Eos % (Auto) 3.8 % 08/21/24 05:20 Baso % (Auto) 0.6 % 08/21/24 05:20 Neut # (Auto) 4.47 10^3/uL (1.8-7.7) 08/21/24 05:20 Lymph # (Auto) 1.0 10^3/uL (0.8-4.8) 08/21/24 05:20 [place] # (Auto) 0.5 10^3/uL (0.2-0.9) 08/21/24 05:20 Eos # (Auto) 0.2 10^3/uL (0.0-0.8) 08/21/24 05:20 Baso # (Auto) 0.0 10^3/uL (0.0-0.1) 08/21/24 05:20 Nucleated RBC % (auto) 0 % 08/21/24 05:20 Nucleated RBCs # 0.0 /100WBC 08/21/24 05:20 Specimen Type Arterial 08/19/24 13:20 Sample Site Radial, left 08/19/24 13:20 ABG pH 7.32 (7.35-7.45) L 08/19/24 13:20 ABG pCO2 51.5 mmHg (35-45) H 08/19/24 13:20 ABG pO2 76.4 mmHg (80.0-100.0) L 08/19/24 13:20 ABG PO2/FiO2 Ratio 191 08/19/24 13:20 ABG HCO3 26.7 mmol/L (22-26) H 08/19/24 13:20 ABG O2 Saturation 95.2 08/19/24 13:20 ABG Base Excess 0.3 mmol/L (-2.0-2.0) 08/19/24 13:20 Isaias Test Pos 08/19/24 13:20 A-a O2 Gradient 19.0 mmHg (5-10) H 08/19/24 13:20 Hematocrit 28.2 % (42-52) L 08/19/24 13:20 Hgb O2 Saturation 92.8 % (95-100) L 08/19/24 13:20 Carboxyhemoglobin 0.9 %THgb (0.4-20.1) 08/19/24 13:20 Methemoglobin 1.6 % (0.4-1.5) H 08/19/24 13:20 Total Hemoglobin 9.2 g/dL (14-18) L 08/19/24 13:20 Sodium 145.0 mmol/L (131-143) H 08/19/24 13:20 Potassium 4.5 mmol/L (3.5-5.0) 08/19/24 13:20 Glucose 73.0 mg/dL (70-115) 08/19/24 13:20 Ionized Calcium 1.2 mmol/L (1.1-1.4) 08/19/24 13:20 O2 Delivery Device Hag 08/19/24 13:20 O2 Liters/Min 40.0 % 08/19/24 13:20 FiO2 40.0 % 08/19/24 13:20 Wound Care Physician ID Cak 08/19/24 13:20 Sodium 141 mmol/L (136-145) 08/21/24 05:20 Potassium 4.2 mmol/L (3.5-5.1) 08/21/24 05:20 Chloride 103 mmol/L (98-107) 08/21/24 05:20 Carbon Dioxide 26 mmol/L (22-29) 08/21/24 05:20 Anion Gap 16.2 (5-19) 08/21/24 05:20 BUN 44 mg/dL (8-23) H 08/21/24 05:20 Creatinine 2.1 mg/dL (0.7-1.2) H 08/21/24 05:20 GFR Calculation Not Reportable 08/21/24 05:20 Glucose 147 mg/dL (65-115) H 08/21/24 05:20 POC Glucose 207 mg/dL (70-110) H 08/21/24 11:03 Calculated Osmolality 306 mOsm/kg (285-295) H 08/21/24 05:20 Lactic Acid 1.1 mmol/L (0.5-2.2) 08/18/24 21:10 Calcium 8.3 mg/dL (8.5-10.5) L 08/21/24 05:20 Total Bilirubin 0.2 mg/dL (0.15-1.2) 08/20/24 04:44 AST 13 U/L (0-40) 08/20/24 04:44 ALT 10 U/L (0-41) 08/20/24 04:44 Alkaline Phosphatase 104 U/L (40-130) 08/20/24 04:44 Troponin T Baseline 54 ng/L (0-15) H 08/19/24 01:23 Troponin T Hi Sens 6Hr 57.72 ng/L (0-15) H 08/19/24 07:33 Troponin T Hi Sens 6Hr Delta 3.72 ng/L (0-12) 08/19/24 07:33 NT-Pro-B Natriuret Pep 1289 pg/mL (0-450) H 08/18/24 21:10 Total Protein 6.6 g/dL (6.6-8.7) 08/20/24 04:44 Albumin 3.5 g/dL (3.5-5.2) 08/20/24 04:44 Globulin 3.1 g/dL (1.3-4.6) 08/20/24 04:44 TSH 2.68 uIU/mL (0.27-4.20) 08/20/24 04:44 Urine Color Yellow (Yellow) 08/19/24 02:20 Urine Appearance Clear (CLEAR) 08/19/24 02:20 Urine pH 5.5 (5-7) 08/19/24 02:20 Ur Specific [place] 1.011 (1.005-1.030) 08/19/24 02:20 Urine Protein 1+ (Negative) A 08/19/24 02:20 Urine Glucose (UA) Trace (Normal) H 08/19/24 02:20 Urine Ketones Negative (Negative) 08/19/24 02:20 Urine Blood Negative (Negative) 08/19/24 02:20 Urine Nitrate Negative (Negative) 08/19/24 02:20 Urine Bilirubin Negative (Negative) 08/19/24 02:20 Urine Urobilinogen 0.2 mg/dL (Negative) 08/19/24 02:20 Ur Leukocyte Esterase 2+ (Negative) A 08/19/24 02:20 Urine RBC 0-2 /hpf (0-2) 08/19/24 02:20 Urine WBC 21-50 /hpf (0-5) H 08/19/24 02:20 Ur Squamous Epith Cells 0-5 /hpf (0-5) 08/19/24 02:20 Amorphous Sediment Not Reportable 08/19/24 02:20 Urine Bacteria None seen /hpf (NONE) 08/19/24 02:20 Hyaline Casts 1.21 /lpf 08/19/24 02:20 Ur Random Urea Nitrogn 321 mg/dL 08/19/24 02:20 Urine Creatinine 27 mg/dL (39-259) L 08/19/24 02:20 Nasal MRSA (PCR) Mrsa detected (Negative) A 08/19/24 16:15 Coronavirus (PCR) Negative (Negative) 08/18/24 23:50 Influenza A (PCR) Negative (Negative) 08/18/24 23:50 Influenza Type B (PCR) Negative (Negative) 08/18/24 23:50 RSV (PCR) Negative (Negative) 08/18/24 23:50 Vitals Last Vital Signs Temp 99.6 F 08/21/24 11:20 Pulse 70 08/21/24 11:20 Resp 18 08/21/24 11:20 BP 133/78 08/21/24 11:20 Pulse Ox 92 08/21/24 11:20 O2 Del Method Room Air 08/21/24 11:20 O2 Flow Rate 2 08/21/24 06:00 FiO2 24 08/20/24 15:23 Discharge Plan Discharge Patient Disposition: Xfer SNF Condition: Stable Prescriptions: New clindamycin HCl 300 mg capsule 300 mg PO Q8H 7 Days Qty: 21 0RF potassium chloride 10 mEq tablet extended release 10 meq PO DAILY Qty: 30 3RF Rx Instructions: only with lasix Breo Ellipta 50-25 mcg/dose blister with device 1 inh inhalation Q24H Qty: 60 3RF tiotropium bromide [Spiriva with HandiHaler] 18 mcg capsule, w/inhalation device 1 cap inhalation DAILY Qty: 60 4RF Rx Instructions: puncture 1 cap using device; one dose = 2 inhalations levofloxacin 750 mg tablet 750 mg PO Q48H 7 Days Qty: 4 0RF Continued gabapentin 600 mg tablet 600 mg PO TID insulin glargine [Lantus U-100 Insulin] 100 unit/mL solution 30 unit SUBCUT QAM albuterol sulfate 2.5 mg /3 mL (0.083 %) Solution For Nebulization 2.5 mg INHALATION Q6H PRN (Reason: breathing) levetiracetam 500 mg tablet 500 mg PO BID hydralazine 50 mg tablet 60 mg PO TID insulin lispro [Humalog KwikPen Insulin] 100 unit/mL Insulin Pen See Rx Instructions .ROUTE .COMPLEX Rx Instructions: sliding scale Changed furosemide 20 mg tablet 40 mg PO DAILY Qty: 60 3RF Discontinued spironolactone 25 mg tablet 25 mg PO DAILY simvastatin 20 mg tablet 20 mg PO DAILY Discharge Orders: Discharge Order (Routine); Ordered 08/21/24 Ordered By: Carlene Baker Other Ambulatory Orders: DME: BIPAP (Order) Location: None Selected Ordered By: Carlene Baker Referrals: Duke Bradley [Primary Care Provider] - Discharge Diet: As Directed Discharge Activity: Increase activity as tolerated Activity Restrictions/Additional Instructions: Discontinue spironolactone Patient can use 40 mg of Lasix with potassium supplementation For his aspiration pneumonia with MRSA he can take 7 days of clindamycin We have also arranged BiPAP for his hypercapnic hypoxic respiratory failure Will also add inhalers for his COPD He is at high risk for aspiration speech therapy recommended level 4 dysphagia diet with extremely thick liquid Discharge Attestations Time Spent in Discharge Care*: greater than 30 min Quality Metrics Clinical Quality Measures [ No reported AMI, CVA or VTE this stay] Coding Level of Care Code Acute Code for Chg Fwd Diagnoses Decompensated heart failure I50.9 JORDANA (acute kidney injury) N17.9 Acute encephalopathy G93.40 Acute respiratory failure with hypoxia and hypercapnia J96.01; J96.02 Pneumonia J18.9
[2024-08-21] MEDS: insulin lispro 100 unit/1 mL SUBCUT ×2 (12:15→17:42)
--- NOTE | 2024-08-21 13:55 | PC.NURSE ---
REPORT CALLED TO MATTHEW CEDILLO
[2024-08-21 16:36] LABS: Glucose Point of Care 322 mg/dL (70-110)
== END 2024-08-21 20:00 | disposition skilled nursing facility (03) | DRG 871 ==
LOC: ER 23:30 → ER IP 08-19 00:08 → ICU 08-19 00:18 → MEDSURG 08-20 19:58
PROVIDERS: Admitting Provider Internal Medicine; Emergency Provider Emergency Medicine; PCP Student in an Organized Health Care Education/Training Program; Visit Provider Internal Medicine
DX: A41.9 Sepsis, unspecified organism (principal); G93.41 Metabolic encephalopathy; J15.212 Pneumonia due to Methicillin resistant Staphylococcus aureus; J96.02 Acute respiratory failure with hypercapnia; J96.01 Acute respiratory failure with hypoxia; I50.23 Acute on chronic systolic (congestive) heart failure; I13.0 Hypertensive heart and chronic kidney disease with heart failure and stage 1 through stage 4 chronic kidney disease, or unspecified chronic kidney disease; N17.9 Acute kidney failure, unspecified; N39.0 Urinary tract infection, site not specified; N13.30 Unspecified hydronephrosis; R65.20 Severe sepsis without septic shock; E78.5 Hyperlipidemia, unspecified; K21.9 Gastro-esophageal reflux disease without esophagitis; F41.9 Anxiety disorder, unspecified; N18.9 Chronic kidney disease, unspecified; E11.22 Type 2 diabetes mellitus with diabetic chronic kidney disease; F03.90 Unspecified dementia, unspecified severity, without behavioral disturbance, psychotic disturbance, mood disturbance, and anxiety; Z66 Do not resuscitate; R13.10 Dysphagia, unspecified; Z79.4 Long term (current) use of insulin; Z79.51 Long term (current) use of inhaled steroids
CPT/HCPCS: 0241U; 36415; 36416; 36600; 51702; 71045; 71250; 74176; 76770; 80048; 80051; 80053; 81001; 82330; 82570; 82805; 82962; 83605; 83880; 84443; 84484; 84540; 85025; 86403; 87040; 87070; 87086; 87205; 87449; 93005; 93306; 94640; 94660; 94669; 96365; 96367; 96372; 96374; 96375; 96376; 99285; J0456; J0696; J1610; J1650; J1815; J1940; J2020; J2470; J2543; J3490; J7050; J7608; J7799; P9046